=== PATIENT | female | born 1950 | race Caucasian/White ===

== ENCOUNTER 2018-01-27 13:54 | Outpatient (CLI) | payer MEDICARE, OTHER ==
--- NOTE | 2018-01-27 16:11 | BD ---
BONE DENSITOMETRY USING DEXA 01/27/18 HISTORY: Postmenopausal screening for osteoporosis. Lumbar Spine: BMD (g/cm2) T-Score: Z-Score: L1 0.964 -0.2 1.6 L2 1.097 2.6 2.6 L3 1.188 0.9 3.0 L4 1.080 0.2 2.3 L1-L4 1.081 0.3 2.3 Femoral Neck: 0.680 -1.5 0.2 Total Femur: 0.761 -1.5 0.0 The ten year fracture risk for major osteoporotic fracture is 8.9% and for hip fracture is 1.1%. Impression: Osteopenia. POS: [facility]
== END 2018-01-27 13:55 | disposition home or self-care (01) ==
LOC: BICMAMMO 13:54
PROVIDERS: ATTEND Internal Medicine Rheumatology
DX: M81.0 Age-related osteoporosis without current pathological fracture (principal); M85.859 Other specified disorders of bone density and structure, unspecified thigh
CPT/HCPCS: 77080

== ENCOUNTER 2021-02-27 17:04 | Inpatient (IN) | payer MEDICARE, OTHER ==
[2021-02-27 21:41] VITALS: BMI 35.9
[2021-02-27] MEDS ORDERED: Ondansetron PF 4 MG/2 ML Vial IVP PRN (23:27)
[2021-02-27] MEDS ORDERED: Acetaminophen 325 MG TAB PO PRN (23:27)
[2021-02-27] MEDS ORDERED: guaiFENesin/DM ER PO PRN (23:29)
[2021-02-28] MEDS: Levothyroxine 150 MCG TAB PO SCH (05:40)
[2021-02-28 07:48] LABS: #Lymphocytes 0.8 thou/uL (1.20-3.40); #Monocytes 0.1 thou/uL (0.11-0.59); #Neutrophils 8.2 thou/uL (1.40-6.50); %Basophils 0.2 % (0.0-1.0); %Eosinophils 0.2 % (0.0-10.0); %Lymphocytes 8.4 % (21.0-51.0); %Monocytes 1.5 % (0.0-10.0); %Neutrophils 89.7 % (42.0-75.0); Hemoglobin 12.8 g/dL (12.0-16.0); Mean Corpuscular HGB CONC 32.2 g/dL (32.0-36.0); Mean Corpuscular Hemoglobin 28.2 pg (27.0-31.0); Mean Corpuscular Volume 87.6 fL (78.0-98.0); Mean Platelet Volume 7.3 fL (7.4-10.4); Platelet Count 184 thou/uL (130-400); RBC Distribution Width 15.4 % (11.5-14.5); Red Blood Cell (RBC) Count 4.55 mill/uL (4.20-5.40); White Blood Cell (WBC) Count 9.1 thou/uL (4.8-10.8)
[2021-02-28] MEDS: Carvedilol 6.25 MG TAB PO SCH ×2 (08:23→16:45)
[2021-02-28] MEDS: ALPRAZolam 0.25 MG TAB PO SCH ×2 (08:24→20:47)
[2021-02-28] MEDS: Rivaroxaban 10 MG TAB PO SCH (08:24)
[2021-02-28] MEDS: Amlodipine 5 MG TAB PO SCH (08:25)
[2021-02-28] MEDS: Furosemide 20 MG TAB PO SCH (08:25)
[2021-02-28 08:38] LABS: Anion Gap 13 mmol/L (10-20); Calcium 9.6 mg/dL (7.8-10.44); Carbon Dioxide 22 mmol/L (23-31); Chloride 106 mmol/L (98-107); Glucose 163 mg/dL (83-110); Potassium 3.7 mmol/L (3.5-5.1); Sodium 137 mmol/L (136-145)
[2021-02-28 08:39] LABS: BUN (Urea Nitrogen) 14 mg/dL (9.8-20.1); Calc. Creatinine Clearance 73 mL/min (70-130); Magnesium 2.1 mg/dL (1.6-2.6)
[2021-02-28] MEDS: Famotidine 20 MG TAB PO SCH (10:47)
[2021-02-28] MEDS: Cholecalciferol 1,000 UNITS (25 MCG) TAB PO SCH (10:48)
[2021-02-28] MEDS: Cyanocobalamin (Vitamin B-12) 1,000 MCG TAB PO SCH (10:48)
[2021-02-28] MEDS: Colchicine 0.6 MG TAB PO SCH ×2 (10:48→20:45)
[2021-02-28] MEDS ORDERED: methylPREDNISolone Sod Succ/PF 125 MG/2 ML VIAL IVP SCH (20:15)
[2021-02-28] MEDS ORDERED: clonazePAM 1 MG TAB PO SCH (21:00)
[2021-02-28] MEDS ORDERED: Atorvastatin Calcium 20 MG TAB PO SCH (21:00)
[2021-02-28] MEDS ORDERED: FLUoxetine HCl 20 MG CAP PO SCH (21:00)
[2021-03-01] MEDS: Levothyroxine 150 MCG TAB PO SCH (05:00)
[2021-03-01 07:11] LABS: #Lymphocytes 0.9 thou/uL (1.20-3.40); #Monocytes 0.2 thou/uL (0.11-0.59); #Neutrophils 13.1 thou/uL (1.40-6.50); %Eosinophils 0.2 % (0.0-10.0); %Lymphocytes 6.5 % (21.0-51.0); %Monocytes 1.6 % (0.0-10.0); %Neutrophils 91.8 % (42.0-75.0); Hemoglobin 12.1 g/dL (12.0-16.0); Mean Corpuscular HGB CONC 31.3 g/dL (32.0-36.0); Mean Corpuscular Hemoglobin 27.6 pg (27.0-31.0); Mean Corpuscular Volume 88.4 fL (78.0-98.0); Mean Platelet Volume 7.3 fL (7.4-10.4); Platelet Count 238 thou/uL (130-400); RBC Distribution Width 15.6 % (11.5-14.5); Red Blood Cell (RBC) Count 4.38 mill/uL (4.20-5.40); White Blood Cell (WBC) Count 14.3 thou/uL (4.8-10.8)
[2021-03-01 07:30] LABS: Anion Gap 12 mmol/L (10-20); BUN (Urea Nitrogen) 20 mg/dL (9.8-20.1); Calc. Creatinine Clearance 62 mL/min (70-130); Calcium 9.6 mg/dL (7.8-10.44); Carbon Dioxide 27 mmol/L (23-31); Chloride 104 mmol/L (98-107); Glucose 151 mg/dL (83-110); Magnesium 2.2 mg/dL (1.6-2.6); Potassium 3.8 mmol/L (3.5-5.1); Sodium 139 mmol/L (136-145)
[2021-03-01] MEDS: Amlodipine 5 MG TAB PO SCH (07:56)
[2021-03-01] MEDS: Colchicine 0.6 MG TAB PO SCH (07:56)
[2021-03-01] MEDS: Cyanocobalamin (Vitamin B-12) 1,000 MCG TAB PO SCH (07:57)
[2021-03-01] MEDS: Furosemide 20 MG TAB PO SCH (07:57)
[2021-03-01] MEDS: ALPRAZolam 0.25 MG TAB PO SCH (07:57)
[2021-03-01] MEDS: Rivaroxaban 10 MG TAB PO SCH (07:57)
[2021-03-01] MEDS: Carvedilol 6.25 MG TAB PO SCH (07:57)
[2021-03-01] MEDS: Cholecalciferol 1,000 UNITS (25 MCG) TAB PO SCH (07:58)
[2021-03-01] MEDS: Famotidine 20 MG TAB PO SCH (07:58)
[2021-03-01] MEDS ORDERED: predniSONE 20 MG TAB PO SCH (08:00)
[2021-03-01 08:05] VITALS: BP 164/77; TEMP 98.3
[2021-03-01] MEDS ORDERED: FLUoxetine HCl 20 MG CAP PO SCH (09:00)
== END 2021-03-01 14:18 | disposition home or self-care (01) | DRG 189 ==
LOC: T4-A 17:04
PROVIDERS: ADMIT Family Medicine; ATTEND Internal Medicine
DX: J96.01 Acute respiratory failure with hypoxia (principal); J98.11 Atelectasis; M41.9 Scoliosis, unspecified; Z96.653 Presence of artificial knee joint, bilateral; E66.9 Obesity, unspecified; J45.909 Unspecified asthma, uncomplicated; I12.9 Hypertensive chronic kidney disease with stage 1 through stage 4 chronic kidney disease, or unspecified chronic kidney disease; E78.5 Hyperlipidemia, unspecified; N18.30 Chronic kidney disease, stage 3 unspecified; E03.9 Hypothyroidism, unspecified; D63.1 Anemia in chronic kidney disease; I34.0 Nonrheumatic mitral (valve) insufficiency; G47.33 Obstructive sleep apnea (adult) (pediatric); J98.09 Other diseases of bronchus, not elsewhere classified; Z88.5 Allergy status to narcotic agent; Z88.8 Allergy status to other drugs, medicaments and biological substances; Z79.890 Hormone replacement therapy; Z79.899 Other long term (current) drug therapy; Z90.710 Acquired absence of both cervix and uterus; Z82.49 Family history of ischemic heart disease and other diseases of the circulatory system; Z83.2 Family history of diseases of the blood and blood-forming organs and certain disorders involving the immune mechanism; Z68.35 Body mass index [BMI] 35.0-35.9, adult; Z86.718 Personal history of other venous thrombosis and embolism; Z87.01 Personal history of pneumonia (recurrent); Z20.822 Contact with and (suspected) exposure to COVID-19
CPT/HCPCS: 0240U; 36415; 71045; 71275; 80048; 80053; 83735; 83880; 84484; 85025; 93005; 94640; 96365; 96375; J0696; J2930; J7512; J7620

== ENCOUNTER 2021-03-27 08:06 | Outpatient (CLI) | payer MEDICARE | END 2021-03-27 08:07 | disposition home or self-care (01) | LOC: RAD 08:06 | PROVIDERS: ATTEND Internal Medicine Critical Care Medicine | DX: R06.00 Dyspnea, unspecified (principal) | CPT/HCPCS: 71046 ==

== ENCOUNTER 2023-01-23 15:59 | Emergency (ER) | payer MEDICARE, OTHER ==
[2023-01-23 16:38] LABS: Bilirubin Negative (Negative); Blood, Urine Trace (Negative); Clarity Clear (Clear); Glucose, Urine (Dipstick) Normal (Negative); Ketone, Urine Negative (Negative); Leukocyte 75 Leu/uL (Negative); Nitrite Negative (Negative); Protein, Urine (Dipstick) Negative (Neg-Trace); Specific Gravity, Urine 1.013 (1.002-1.036); Urobilinogen Normal mg/dL (Less than 2); pH, Urine 5.5 (5.0-9.0)
[2023-01-23 16:51] LABS: Bacteria/HPF 2+ HPF (None Seen); CAUTI Indications for Culture Dysuria,urgency,freq; RBC/HPF 0-3 HPF (0-3)
[2023-01-23 16:54] LABS: Urine Culture Reflex Yes Yes
[2023-01-23] MEDS ORDERED: Cephalexin 250 MG CAP ONE (17:10)
== END 2023-01-23 17:45 | disposition home or self-care (01) ==
LOC: ERS 15:59
DX: N39.0 Urinary tract infection, site not specified (principal)
CPT/HCPCS: 51701; 81001; 87077; 87086; 87186

== ENCOUNTER 2023-04-03 18:42 | Emergency (ER) | payer MEDICARE, OTHER ==
[2023-04-03] MEDS ORDERED: Ondansetron ODT 4 MG TAB ONE (19:14)
[2023-04-03 19:20] LABS: #Basophils 0.1 thou/uL (0.0-0.2); #Monocytes 0.9 thou/uL (0.11-0.59); #Neutrophils 7.2 thou/uL (1.40-6.50); %Basophils 0.6 % (0.0-1.0); %Eosinophils 0.3 % (0.0-10.0); %Lymphocytes 12.2 % (21.0-51.0); %Monocytes 9.4 % (0.0-10.0); %Neutrophils 76.6 % (42.0-75.0); Hematocrit 38.9 % (36.0-47.0); Hemoglobin 12.6 g/dL (12.0-16.0); Mean Corpuscular HGB CONC 32.4 g/dL (32.0-36.0); Mean Corpuscular Hemoglobin 29.6 pg (27.0-31.0); Mean Corpuscular Volume 91.3 fl (78.0-98.0); Mean Platelet Volume 9.1 fL (7.4-10.4); Platelet Count 298 10x3/uL (130-400); RBC Distribution Width 15.2 % (11.5-14.5); Red Blood Cell (RBC) Count 4.26 mill/uL (4.20-5.40); White Blood Cell (WBC) Count 9.4 10x3/uL (4.8-10.8)
[2023-04-03 19:45] LABS: Troponin I 0.015 ng/mL (< 0.028)
[2023-04-03 19:47] LABS: ALT (SGPT) 28 U/L (8-55); AST (SGOT) 28 U/L (5-34); Albumin 4.1 g/dL (3.4-4.8); Alkaline Phosphatase 67 U/L (40-110); Anion Gap 12 mmol/L (10-20); BUN (Urea Nitrogen) 10 mg/dL (9.8-20.1); Bilirubin, Total 0.6 mg/dL (0.2-1.2); Calc. Creatinine Clearance 0 mL/min (70-130); Calcium 9.4 mg/dL (7.8-10.44); Carbon Dioxide 24 mmol/L (23-31); Chloride 102 mmol/L (98-107); Estimated GFR 51; Globulin 3.1 g/dL (2.4-3.5); Glucose 116 mg/dL (83-110); Lipase 19 U/L (8-78); Potassium 3.8 mmol/L (3.5-5.1); Protein, Total 7.2 g/dL (5.8-8.1); Sodium 134 mmol/L (136-145)
[2023-04-03 20:55] LABS: Bacteria/HPF None Seen HPF (None Seen); Bilirubin Negative (Negative); Blood, Urine Negative (Negative); CAUTI Indications for Culture Dysuria,urgency,freq; Clarity Clear (Clear); Glucose, Urine (Dipstick) Normal (Negative); Ketone, Urine Negative (Negative); Leukocyte Negative Leu/uL (Negative); Nitrite Negative (Negative); Protein, Urine (Dipstick) Negative (Neg-Trace); RBC/HPF 0-3 HPF (0-3); Specific Gravity, Urine 1.005 (1.002-1.036); Squamous Epithelial 0-3 HPF (0-3); Urobilinogen Normal mg/dL (Less than 2); WBC/HPF 0-3 HPF (0-3); pH, Urine 6.5 (5.0-9.0)
[2023-04-03 20:56] LABS: Urine Culture Reflex No No
== END 2023-04-03 22:41 | disposition home or self-care (01) ==
LOC: ERS 18:42
DX: K29.70 Gastritis, unspecified, without bleeding (principal)
CPT/HCPCS: 36415; 71045; 81001; 83690; 84484; 85025; 93005; Q0162

== ENCOUNTER 2023-05-29 17:59 | Emergency (ER) | payer MEDICARE ==
[2023-05-29] MEDS ORDERED: Lidocaine 1% w/Epinephrine 1:100K 20 ML VIAL ONE (18:16)
[2023-05-29] MEDS ORDERED: Boostrix 0.5 ML (Tdap) VIAL (>/=7 yrs of age) ONE (18:19)
[2023-05-29] MEDS ORDERED: Lidocaine/Transparent Dressing 1 EACH KIT ONE (18:19)
[2023-05-29 18:34] LABS: #Eosinphils 0.1 thou/uL (0.0-0.7); #Monocytes 0.9 thou/uL (0.11-0.59); #Neutrophils 6.8 thou/uL (1.40-6.50); %Basophils 0.4 % (0.0-1.0); %Lymphocytes 18.3 % (21.0-51.0); %Monocytes 9.5 % (0.0-10.0); %Neutrophils 70.3 % (42.0-75.0); Hematocrit 32.5 % (36.0-47.0); Hemoglobin 10.6 g/dL (12.0-16.0); Mean Corpuscular HGB CONC 32.6 g/dL (32.0-36.0); Mean Corpuscular Hemoglobin 30.1 pg (27.0-31.0); Mean Corpuscular Volume 92.3 fl (78.0-98.0); Mean Platelet Volume 8.9 fL (7.4-10.4); Platelet Count 251 10x3/uL (130-400); RBC Distribution Width 13.8 % (11.5-14.5); Red Blood Cell (RBC) Count 3.52 mill/uL (4.20-5.40); White Blood Cell (WBC) Count 9.6 10x3/uL (4.8-10.8)
[2023-05-29 18:49] LABS: INR-International Normal Ratio 3.1; PTT 44.2 sec (22.9-36.1); Prothrombin Time 32.3 sec (12.0-14.7)
== END 2023-05-29 20:32 | disposition home or self-care (01) ==
LOC: ERS 17:59
DX: S01.81XA Laceration without foreign body of other part of head, initial encounter (principal); I10 Essential (primary) hypertension; R79.1 Abnormal coagulation profile; W18.30XA Fall on same level, unspecified, initial encounter
CPT/HCPCS: 12053; 36415; 70450; 72125; 85025; 85610; 85730; 90471; 90715

== ENCOUNTER 2024-04-25 10:52 | Outpatient (CLI) | payer MEDICARE | END 2024-04-25 10:53 | disposition home or self-care (01) | LOC: BICMAMMO 10:52 | PROVIDERS: ATTEND Family Medicine | DX: Z12.31 Encounter for screening mammogram for malignant neoplasm of breast (principal); Z85.820 Personal history of malignant melanoma of skin | CPT/HCPCS: 77063; 77067 ==

== ENCOUNTER 2024-10-31 13:46 | Outpatient (CLI) | payer MEDICARE ==
[2024-10-31 14:57] LABS: #Basophils 0.07 10x3/uL (0.0-0.2); #Eosinophils 0.13 10x3/uL (0.0-0.7); #Monocytes 0.94 10x3/uL (0.11-0.59); #Neutrophils 6.27 10x3/uL (1.40-6.50); %Basophils 0.8 % (0.0-1.0); %Eosinophils 1.4 % (0.0-10.0); %Lymphocytes 19.4 % (21.0-51.0); %Monocytes 10.2 % (0.0-10.0); %Neutrophils 67.7 % (42.0-75.0); Hematocrit 32.5 % (36.0-47.0); Hemoglobin 10.3 g/dL (12.0-16.0); Mean Corpuscular Hemoglobin 28.8 pg (27.0-31.0); Mean Corpuscular Volume 90.8 fL (78.0-98.0); Platelet Count 234 10x3/uL (130-400); Red Blood Cell (RBC) Count 3.58 mill/uL (4.20-5.40); White Blood Cell (WBC) Count 9.25 10x3/uL (4.8-10.8)
[2024-10-31 15:23] LABS: Anion Gap 13 mmol/L (10-20); BUN (Urea Nitrogen) 19 mg/dL (9.8-20.1); Calc. Creatinine Clearance 0 mL/min (70-130); Calcium 8.5 mg/dL (7.8-10.44); Carbon Dioxide 26 mmol/L (23-31); Chloride 104 mmol/L (98-107); Glucose 100 mg/dL (83-110); Potassium 3.5 mmol/L (3.5-5.1); Sodium 139 mmol/L (136-145)
== END 2024-10-31 13:47 | disposition home or self-care (01) ==
LOC: LABBT 13:46
PROVIDERS: ATTEND Internal Medicine Cardiovascular Disease
DX: Z01.812 Encounter for preprocedural laboratory examination (principal); I48.91 Unspecified atrial fibrillation
CPT/HCPCS: 80048; 85025